=== PATIENT | male | born 1975 | race Caucasian/White ===

== ENCOUNTER 2017-05-01 11:07 | Emergency (ER) | payer SELFPAY ==
[~2017-05-01] VITALS: Ht 180.3 cm; Wt 90.7 kg
[~2017-05-01 11:07] MED LIST: ALPRAZOLAM XR0.5 MG PO; ATARAX,VISTARIL50 MG PO; ATIVAN1 MG PO; LIBRIUM5 MG PO; NORCO 325 MG-101 TAB PO; VALIUM10 MG PO
== END 2017-05-01 12:46 | disposition left against medical advice (07) ==
LOC: ED 11:07
DX: R03.0 Elevated blood-pressure reading, without diagnosis of hypertension (principal); F17.200 Nicotine dependence, unspecified, uncomplicated

== ENCOUNTER 2017-10-13 13:22 | Emergency (ER) | payer SELFPAY ==
[~2017-10-13] VITALS: Ht 180.3 cm; Wt 90.7 kg
== END 2017-10-13 15:17 | disposition home or self-care (01) ==
LOC: ED 13:22
DX: S99.922A Unspecified injury of left foot, initial encounter (principal); F17.200 Nicotine dependence, unspecified, uncomplicated; F12.10 Cannabis abuse, uncomplicated; F14.10 Cocaine abuse, uncomplicated; F11.10 Opioid abuse, uncomplicated; Z98.890 Other specified postprocedural states; Z90.89 Acquired absence of other organs; W10.8XXA Fall (on) (from) other stairs and steps, initial encounter; Y93.89 Activity, other specified; Y92.89 Other specified places as the place of occurrence of the external cause; Y99.9 Unspecified external cause status

== ENCOUNTER 2019-03-14 13:09 | Emergency (ER) | payer OTHER ==
[~2019-03-14] VITALS: Wt 99.8 kg
[2019-03-14] MEDS ORDERED: ZITHROMAX250 MG PO (14:40)
[2019-03-14] MEDS ORDERED: MEDROL DOSEPAK4 MG PO (14:40)
== END 2019-03-14 14:50 | disposition home or self-care (01) ==
LOC: ED 13:09
DX: R07.81 Pleurodynia (principal); R05 Cough; F17.200 Nicotine dependence, unspecified, uncomplicated; Z90.89 Acquired absence of other organs

== ENCOUNTER 2019-12-14 15:15 | Emergency (ER) | payer SELFPAY ==
[~2019-12-14] VITALS: Ht 180.3 cm; Wt 95.3 kg
[~2019-12-14 15:15] MED LIST changes: +MEDROL DOSEPAK4 MG PO; +ZITHROMAX250 MG PO
[2019-12-14] MEDS ORDERED: NORCO 5-325 TA1 EACH PO ×2 (16:10→16:12)
== END 2019-12-14 17:03 | disposition home or self-care (01) ==
LOC: ED 15:15
DX: S82.891A Other fracture of right lower leg, initial encounter for closed fracture (principal); X50.1XXA Overexertion from prolonged static or awkward postures, initial encounter; Y93.89 Activity, other specified; Y92.89 Other specified places as the place of occurrence of the external cause; Y99.8 Other external cause status

== ENCOUNTER → 2020-08-02 | Outpatient (CLI) | payer SELFPAY ==
[~2020-08-02] MED LIST changes: +NORCO 5-325 TA1 EACH PO
== END | disposition home or self-care (01) ==
LOC: COVID19 16:06
PROVIDERS: ATTEND Student in an Organized Health Care Education/Training Program
DX: U07.1 COVID-19 (principal)

== ENCOUNTER 2020-09-13 17:10 | Emergency (ER) | payer OTHER ==
[~2020-09-13] VITALS: Ht 182.8 cm; Wt 99.8 kg
== END 2020-09-13 19:00 ==
LOC: ED 17:10
DX: B27.90 Infectious mononucleosis, unspecified without complication (principal); F14.90 Cocaine use, unspecified, uncomplicated; F12.90 Cannabis use, unspecified, uncomplicated; F17.200 Nicotine dependence, unspecified, uncomplicated; Z98.890 Other specified postprocedural states; Z79.899 Other long term (current) drug therapy

== ENCOUNTER 2020-09-17 12:11 | Emergency (ER) | payer OTHER ==
[~2020-09-17] VITALS: Ht 182.8 cm; Wt 99.8 kg
[2020-09-17 13:19] LABS: BASO % 0.3 % (0.0-1.0); EOS % 0.2 % (1.0-4.0); HEMATOCRIT 30.2 % (42.0-52.0); LYMPH # 1.4 10*3/uL (1.3-4.4); LYMPH % 14.2 % (27.0-41.0); MEAN CELL VOLUME 105.2 fl (80.0-94.0); MEAN CORPUSCULAR HGB 35.5 pg (27.0-31.0); MEAN CORPUSCULAR HGB CONC 33.8 g/dl (33.0-37.0); MEAN PLATELET VOLUME 10.9 fl (9.6-12.3); MONO % 9.8 % (3.0-9.0); NEUT # 7.5 10*3/uL (2.3-7.9); NEUT % 74.2 % (47.0-73.0); PLATELET COUNT AUTOMATED 76 10*3/uL (130-400); RED BLOOD COUNT 2.87 10*6/uL (4.50-5.90); WHITE BLOOD COUNT 10.1 10*3/uL (4.8-10.8)
[2020-09-17 13:35] LABS: ALKALINE PHOSPHATASE 128 U/L (45-117); BUN 17 mg/dl (7-24); CHLORIDE 103 mmol/L (98-107); CREATININE 1.38 mg/dL (0.70-1.30); LIPASE 87 U/L (73-393); POTASSIUM 3.5 mmol/L (3.5-5.1); SGOT/AST 118 IU/L (3-35); SGPT/ALT 74 U/L (12-78); SODIUM 137 mmol/L (136-145); TOTAL PROTEIN 6.3 gm/dL (6.4-8.2)
[2020-09-17 16:37] LABS: BILIRUBIN Negative (Negative); BLOOD Negative (Negative); CLARITY Clear (Clear); COLOR Dark Yellow (Yellow); GLUCOSE Negative (Negative); KETONE Negative (Negative); LEUKO ESTERASE Negative (Negative); NITRITE Negative (Negative); PH 6.5 (4.5-8.0); SPECIFIC GRAVITY >= 1.030 (1.001-1.030)
[2020-09-17 16:52] LABS: RBC 0-2 rbc/hpf (0-2)
== END 2020-09-17 16:45 | disposition left against medical advice (07) ==
LOC: ED 12:11
PROVIDERS: Physician Assistant
DX: K92.1 Melena (principal); F41.9 Anxiety disorder, unspecified; F32.9 Major depressive disorder, single episode, unspecified; Z98.890 Other specified postprocedural states

== ENCOUNTER 2021-01-29 09:40 | Emergency (ER) | payer OTHER ==
[~2021-01-29] VITALS: Ht 177.8 cm; Wt 109.3 kg
[2021-01-29 10:14] LABS: HEMATOCRIT 21.8 % (42.0-52.0); MEAN CELL VOLUME 97.3 fl (80.0-94.0); MEAN CORPUSCULAR HGB 29.9 pg (27.0-31.0); MEAN CORPUSCULAR HGB CONC 30.7 g/dl (33.0-37.0); MEAN PLATELET VOLUME 10.9 fl (9.6-12.3); PLATELET COUNT AUTOMATED 202 10*3/uL (130-400); RED BLOOD COUNT 2.24 10*6/uL (4.50-5.90); WHITE BLOOD COUNT 17.2 10*3/uL (4.8-10.8)
[2021-01-29 10:26] LABS: ACT PARTIAL THROMBO TIME 27.1 SECONDS (20.0-32.1); INTERNATIONAL NORM RATIO 1.7 (2.0-3.5)
[2021-01-29 10:30] LABS: PLATELET SUFFICIENCY NORMAL (NORMAL); TOTAL CELLS COUNTED 100 #CELLS
[2021-01-29 10:32] LABS: ALBUMIN 2.2 gm/dl (3.1-4.5); ALKALINE PHOSPHATASE 77 U/L (45-117); BUN 34 mg/dl (7-24); CHLORIDE 110 mmol/L (98-107); CREATININE 1.48 mg/dL (0.70-1.30); POTASSIUM 4.4 mmol/L (3.5-5.1); SGOT/AST 81 IU/L (3-35); SGPT/ALT 52 U/L (12-78); SODIUM 143 mmol/L (136-145)
[2021-01-29 10:34] LABS: ETHYL ALCOHOL < 3.0 mg/dl (<3); TROPONIN I 0.774 ng/ml (<0.045)
[2021-01-29 10:57] LABS: ARTERIAL BLOOD GAS PH 7.426 (7.35-7.45)
[2021-01-29 11:00] LABS: ARTERIAL BLOOD GAS PO2 17.8 (80-90)
[2021-01-29 11:45] VITALS: BP 130/78
[2021-01-29 12:00] VITALS: BP 148/70
[2021-01-29] MEDS ORDERED: SUBOXONE 8 MG-1 EACH SL (12:11)
[2021-01-29] MEDS ORDERED: CLONIDINE0.2 MG PO (12:11)
[2021-01-29] MEDS ORDERED: SEROQUEL300 MG PO (12:11)
[2021-01-29 12:15] VITALS: BP 136/72
[2021-01-29 12:20] VITALS: BP 125/62
[2021-01-29 12:30] VITALS: BP 122/65
[2021-01-29 13:29] VITALS: BP 130/79
== END 2021-01-29 13:57 | disposition short-term general hospital (02) ==
LOC: ED 09:40
PROVIDERS: Emergency Medicine
DX: K92.2 Gastrointestinal hemorrhage, unspecified (principal); R57.8 Other shock; F10.10 Alcohol abuse, uncomplicated; F41.9 Anxiety disorder, unspecified; F32.9 Major depressive disorder, single episode, unspecified; F17.200 Nicotine dependence, unspecified, uncomplicated; Z79.899 Other long term (current) drug therapy; Z90.89 Acquired absence of other organs; Z98.890 Other specified postprocedural states; Y90.0 Blood alcohol level of less than 20 mg/100 ml